=== PATIENT | male | born 1985 | race Caucasian/White ===

== ENCOUNTER → 2022-02-10 15:17 | Outpatient (BNVA) | payer BC, SELFPAY | PROVIDERS: PCP Physician Assistant; Visit Provider Nurse Practitioner Family | DX: M47.812 Spondylosis without myelopathy or radiculopathy, cervical region (principal); M79.18 Myalgia, other site; M25.511 Pain in right shoulder; M25.551 Pain in right hip; M62.830 Muscle spasm of back | CPT/HCPCS: 20553; J3300 ==

== ENCOUNTER → 2022-03-10 14:01 | Outpatient (BNVA) | payer BC, SELFPAY | PROVIDERS: PCP Physician Assistant; Visit Provider Nurse Practitioner Family | DX: Z13.89 Encounter for screening for other disorder (principal) ==

== ENCOUNTER 2022-03-21 17:02 | Outpatient (REF) | payer BC, SELFPAY ==
--- NOTE | ~2022-03-21 | XR_ITS ---
EXAMINATION: XR HIP, RIGHT CLINICAL INFORMATION: Pain in right hip COMPARISON: None TECHNIQUE: AP view of the pelvis, AP and frog-leg lateral radiographs of the right hip.. FINDINGS: Bones and soft tissues are normal. No fracture. Alignment is anatomic. Hip joint space is maintained. XR/XR hip RT w PEL1V IMPRESSION: Normal right hip.
== END 2022-03-21 17:03 | disposition home or self-care (01) ==
LOC: HO.XRAY 17:02
PROVIDERS: PCP Physician Assistant; Visit Provider Nurse Practitioner Family
DX: M25.551 Pain in right hip (principal); M51.16 Intervertebral disc disorders with radiculopathy, lumbar region
CPT/HCPCS: 73502

== ENCOUNTER → 2022-03-29 15:37 | Outpatient (BNVA) | payer BC, SELFPAY | PROVIDERS: PCP Physician Assistant; Visit Provider Nurse Practitioner Family | DX: Z13.89 Encounter for screening for other disorder (principal) ==

== ENCOUNTER 2022-04-01 10:00 | Outpatient (RCR) | payer BC, SELFPAY ==
--- NOTE | 2022-04-04 08:40 | MHC.PT.OD ---
[facility] [place] [facility] [place] [employer] [facility] [address] Ariel Scruggs [address] [phone] F: [phone] F: [phone] F: [phone] F: [phone] Physical Therapy Daily Note Diagnosis: PT eval and treat; Unspecified thoracic, thoracolumbar and lumbosacral intervertebral disc disorder M51.16 signed by Scout Diaz PA-C date of script 12/21/21 Date of Surgery: Date of Evaluation: 12/27/21 Date of Treatment: 02/25/22 Treatments to Date: Cancellations to Date: No Shows to Date: Authorized Visits: 6 Insurance End Date: Precautions/ Contraindications:hx facet injection on R C/S no change in sx, hx PT for L sciatica sx which were radiating to knee Subjective: Pt was last seen in PT on 02/25/22, expressing doing very well no significant pain, denies questions with specific HEP, going to gym often several times weekly. Presents stating pain management wanted PT to trial massage or US. Pt not specific to where- therapist reviewed pain management note at time of patient session. see MD note below Pain Score and Location: 2 R LUMBAR UP R SIDE OF BODY Objective Flowsheet: Tests & Measures 10 [facility] [address] [place] [id number] Office Visit Report Signed Patient: Esvin Johnson#: [id number] : 1985Acct:[id number] Age/Sex: 36 / MADM/SER Date: 03/29/22 Loc: HO.PMCADM/SER Time:1537 Attending Provider: Dafne COLBY cc: Dafne Dunlap; Scout Diaz PA-C~ Intake Vital Signs 03/29/22 15:38 Height 6 ft 2 in Weight 200 lb BMI 25.7 Intake Visit Reasons: Follow Up Allergies No Known Allergies Allergy (Verified 03/10/22 14:03) HPI HPI Comments History of Present Illness Details Patient presents today via telehealth encounter for follow up to discuss right hip xray results. Right hip xray reviewed with patient and is normal as noted below. Patient continues to report muscle tenderness and aching pain along his right side, mostly in his right hip and right lower back. He reports his final PT session will be this Monday. Reports minimal improvements in his pain and increased pelvic stabilization with regular HEP and daily stretches. He states he has increased awareness with pelvic alingment with PT and HEP. Patient is interested to proceed to interventional treatments after he completed PT. He has been regularly using TENS unit and finds this helpful, especially for stiffness and spasms of his right lower back in the paraspinals and right hip regions. PRIOR: Patient presents via telehealth encounter today for follow up. He reports minimal pain relief with trigger point injections at previous visit for his right cervical muscle tightness and spasms. Patient also reports no relief with cyclobenzaprine which he only tried for 2 days and had to stop due to significant lethargy and dizziness. He continues with PT and HEP which has been only partially helpful for his axial pain and pelvic stabilization. Today he reports ongoing right hip pain unresponsive to conservative treatments. He received his TENS unit from [email or web address] recently and is awaiting informational conference call with them on how to use it. We reviewed his old records from [facility] for cervical and right shoulder imaging and past injection procedures. Imaging reports are noted below. Patient had right C4-5 C5-6 C6-7 facet injection with steroids on 07/20/2020 through [facility] with good results. Patient denies any fever, malaise, weight changes, abdominal or groin pain, numbness, tingling, upper or lower extremity weakness, bladder/bowel dysfunction or saddle anesthesia. PRIOR: Patient is a pleasant 36 years old male who presents today for his initial encounter with continued pain in his right hip, pelvis and lower back region. His pain escalates through the right side and upper shoulder and collar bone area. Currently in PT and had received prior treatments at [facility] in early 2019. His back pain started in late 2018 due to exercise injury with weight lifting and total body workout. Lumbar MRI on 11/23/18 showed mild lower lumbar levocurvature, large central extruded disc herniation at L5-S1 with disc degenerative change at this level and mild left S1 nerve root impingement. Very small lateral foraminal/extraforaminal disc protrusion at L4-5 without neural impingement and mild facet arthrosis at this level. Very small left paramedian disc protrusion at L1-2 and small left central disc protrusion at T11-12. He reports no axial pain today. Patient continues to go to the gym 3-5 days per week. His most concerns now are right hip to right shoulder pain with significant paraspinal muscle tenderness on the right. Pain is described as dull, sore, hurting, aching, heavy, tight, squeezing, and tearing. Patient denies any fever, malaise, weight loss, abdominal or groin pain, numbness, tingling, upper or lower extremity weakness, bladder/bowel dysfunction or saddle anesthesia. Patient is interested in continuing PT and HEP. He completed PT with pelvic stabilization and chiropractic manipulation [id number] with improvements. Denies taking any medications for pain. Current pain level 12/06. Patient also received cervical right sided facets cortisone injection in 2019 with no relief. He notices significant muscle tenderness and spasms in his right upper and middle trapezius areas and would like to get trigger point injections today. 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 He drinks 1 glass of bourbon 3-4 days per week and daily coffee. Denies smoking or illicit drug use. [facility] Surgical History History of repair of ACL Family History Father Hypertension Prostate cancer Mother No problems noted. Paternal Grandmother Diabetes Paternal Grandfather Diabetes Sister In good health Son In good health Other Mental health problem Substance abuse Social History Housing: House Alcohol intake: current Alcohol intake frequency: a few times a week Patient Tobacco Use Status: Never used Tobacco Second Hand Smoke Exposure: Yes service: No Current occupational status: employed Review of Systems Const All systems reviewed & are unremarkable except as noted in HPI and below Physical Exam Vital Signs: BMI result Body Mass Index 25.7 Const General: cooperative, alert and awake Orientation/consciousness: patient oriented x3 Resp Effort & Inspection: able to speak in complete sentences, no audible wheezes and no cough Neuro General: patient oriented x3 Cognition (Neuro): normal cognition Psych Mental Status: mental status grossly normal Speech and movement: Clear speech present Affect: normal affect Attitude: cooperative Thought process: Normal thought process present Thought content: Normal thought content present, suicidality, no hallucinations and No Depressive thoughts present Insight: Good insight present (Psych) Judgement: Good judgement present (Psych) Results Reviewed Results Reviewed: XR HIP, RIGHT 03/21/22 CLINICAL INFORMATION: Pain in right hip FINDINGS: Bones and soft tissues are normal. No fracture. Alignment is anatomic. Hip joint space is maintained. IMPRESSION: Normal right hip. Assessment & Plan Assessment & Plan (1) Muscle spasm of back: Code(s): M62.830 - Muscle spasm of back (2) Right hip pain: Code(s): M25.551 - Pain in right hip (3) Myofascial pain: Code(s): M79.18 - Myalgia, other site Plan I will add to current PT order request for therapeutic US and deep tissue massage for upcoming PT session this Monday. Patient will call our office back with his responses after PT for potential lumbar and right hip injections to alleviate his ongoing pain. All questions and concerns have been answered and patient agrees with the plan. Follow up as needed. I hereby testify that I spent 13 minutes in conversation with this patient as well as with planning care for this patient and organizing this note. Orders: Orders PT Evaluation and Treatment 3 Days M25.551 - Pain in right hip, M62.830 - Muscle spasm of back, M79.18 - Myalgia, other site Telehealth Telehealth Location of provider rendering services: practice address Location of patient: address on file Patient Identification confirmed using: Name, : Yes Telehealth method: voice only Patient verbally consented to treatment: Yes Patient verbally consented to billing insurance company: Yes Patient informed of any privacy concerns related to visit: Yes Minutes spent on Phone/Video with Pt.: 13 Coding Level of Care Code Tele Est Pt Level 3 (67123) Diagnoses Muscle spasm of back M62.830 Right hip pain M25.551 Myofascial pain M79.18 Documented By:Dafne Dunlap [facility]03/29/22 1538 Exercises Reassessment: AROM of the lumbar WFL no pain reported and good ROM with ability to reach midshin with flexion. Negative squish test, negative MET assessment, negative SLR, now negative prone knee bend and prone instability test which were once positive at start of care. Hip flexion 5/5 B, knee ext 5/5 B, hip abd 4+/5L hip abd 5/5 on R, prone hip ext 5-/5 B, Pt exhibits good symmetrical squat technique. Negative TTP at site of spine during exam. Negative quadrant testing for the spine. No specific area where pt was able to pinpoint as area of pain, tissue appears to demonstrate no restriction; pt doing very well; therapist did not find US warranted or clinically appropriate based on presentation during exam. Due to request found in [facility] notes from last office visit requesting STM, therapist elected trial of IASTM to R QL/lower paraspinal region in effort to assess response. No erythema response was noted with technique. Pt was noted to exhibit good skin rolling, good mm mobility, and no tenderness with treatment. Pt was educated in rationale for why US was not felt to be warranted at this stage of PT. After treatment session was completed- office staff informed therapist of a fax which was sent over from [facility] in afternoon of this date- this was received after treatment was completed today- requesting US and STM Bridge over phyisoball, HS curls with physioball, bridge>HS curls with physioball x2 set 10R, TRX reverse lunges reviewed, lateral stepping with ROW cable column. Review of prone ITY over pball with gtb around ankle, assessment ITY strength prone on mat good no pain B UE. Prone planks reviewed, SL plank technique reviewed. Addressed pt question/home program and goals of PT moving forward with transition to I HEP. See note above manual therapy Modalities Assessment: 04/01/22 Pt was last seen in PT 35 days ago, expressing with positive gains since last visit and progressive improvements since time of initial evaluation. He now exhibits negative prone instabillity testing (at eval was positive) and can demonstrate symmetrical squat technique with proper weight shift/mechanics without evidence of retropulsion. He has been educated in a very dynamic and high level exercise program with specific education re: transitional tasks integrated with gym classes. He did not express any pain or demonstrate any visible skin reaction or erythema response to trial of instrument assisted soft tissue mobilization (completed per request of pain management provider today)- although pt did not present with any report of pain today either.) There was no evidence of any significant tissue restriction or limitation upon reassessment. He verbalizes understanding of I HEP. Pt has met all STG/LTG for stabilization program. D/C to I HEP this time. 02/25/22 Has been advancing home program with good tolerance, now able to complete single leg bridges, reports overall no R UE sx today, relief with hip stretches for home. Discussed plan to continue to diversity strengthening and stabilization program with tasks issued today, educated to complete at home within painfree ranges. Reviewed plan to transition to I HEP likely next session- will try I HEP for next few weeks. Pt loses balance with attempt of warrior single leg poses R >L. Reviewed technique for higher level stabilization of core and pelvis, improving awareness observed. Pt to taper to once every other week due to I HEP and positive response. Of note- therapy office received a fax from pain management following completion of pt's treatment. PT Plan: Continue I HEP. D/C today from PT. Short Term Goals: 1. Pt will demonstrate implement of R hip flexor stretching program. met 2. Pt will demonstrate recruitment of core stabilizers with ADLS/IADLS. met 3. Pt will demonstrate negative prone instability testing met. 4. Pt will demonstrate good evidence hip hinge with functional squat with good core activation met. 5. Lumbar AROM side-bending improvement by 25%. met 6. Hip abd L strength 4+/5. (IR 4-/5). met Care Home Goals: 1. Pt will demonstrate I HEP. (met). 2. Lumbar hip abd strength 5/5 B. (met) 3. Hip abd strength 5/5 B. L 5-/5, R 5/5. 4. Negative prone instability testing. met 5. Resume gym with positive carryover of independent home program. met Electronically signed by: Jeniffer Toney, PT, DPT
== END 2022-06-16 09:55 | disposition home or self-care (01) ==
LOC: HO.PTWFD 10:00
PROVIDERS: PCP Physician Assistant; Visit Provider Physician Assistant
DX: M51.9 Unspecified thoracic, thoracolumbar and lumbosacral intervertebral disc disorder (principal); M51.16 Intervertebral disc disorders with radiculopathy, lumbar region
CPT/HCPCS: 97110; 97140; 97161

== ENCOUNTER 2024-01-29 11:00 | Outpatient (RCR) | payer BC, SELFPAY | END 2024-05-20 07:23 | disposition home or self-care (01) | LOC: HO.PTWFD 11:00 | PROVIDERS: PCP Physician Assistant; Visit Provider Physician Assistant | DX: M67.912 Unspecified disorder of synovium and tendon, left shoulder (principal) | CPT/HCPCS: 97110; 97140; 97161; 97535 ==

== ENCOUNTER 2024-04-23 11:33 | Outpatient (REF) | payer BC, SELFPAY ==
[2024-04-23 14:59] LABS: Hemoglobin 14.7 g/dl (14.0-18.0); Mean Corpuscular HGB Conc 34.2 g/dl (31.0-36.0); Mean Corpuscular Hemoglobin 32.5 pg (27.0-33.0); Mean Corpuscular Volume 95.1 fL (80.0-98.0); Mean Platelet Volume 10.9 fL (9.4-12.4); Platelet Count 246 X10*3/uL (160-400); Red Blood Count 4.52 X10*6/uL (4.60-5.80); Red Cell Distribution Width 12.4 % (11.0-16.0); White Blood Count 5.1 X10*3/uL (4.8-10.8)
[2024-04-23 15:48] LABS: Alanine Aminotransferase 19 U/L (0-40); Albumin Level 4.6 g/dL (3.5-5.0); Alkaline Phosphatase 70 U/L (39-117); Anion Gap 11 (12-20); Aspartate Amino Transferase 23 U/L (5-37); Bilirubin Total 0.7 mg/dL (0.0-1.0); Blood Urea Nitrogen 20 mg/dL (9-16); Calcium 9.6 mg/dL (8.4-10.2); Carbon Dioxide 29 mmol/L (22-29); Chloride 104 mmol/L (96-108); Estimated Glomerular Filt Rate > 60; Glucose Fasting 93 mg/dL (60-99); Potassium 4.2 mmol/L (3.3-5.1); Sodium 140 mmol/L (135-145); Total Protein 7.4 g/dL (6.5-8.0)
== END 2024-04-23 11:34 | disposition home or self-care (01) ==
LOC: HO.WFDLDS 11:33
PROVIDERS: Visit Provider Physician Assistant
DX: Z13.1 Encounter for screening for diabetes mellitus (principal)
CPT/HCPCS: 36415; 80053; 85027

== ENCOUNTER 2024-04-30 15:58 | Outpatient (AMB) | payer BC, SELFPAY ==
[2024-04-30 16:00] VITALS: BP 122/78; PULSE 68; O2SAT 99; BMI 29.4
--- NOTE | 2024-04-30 16:00 | A.OFFPC_ITS ---
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 Patient has a medical history significant lumbar disc disease. Concern-- -> no concerns today Lumbar disc disease: Xray lumbar spine --> Moderate degenerative disc disease L5-S1. No acute osseous abnormality.? Patient is followed by spine in sports and has done extensive months physical therapy and feels better, though not 100%.? He continues to go the gym 5 days a week. Otherwise not use any medications for his back pain. ? .. Vaccine:? Up-to-date with COVID vaccine, flu vaccine Up-to-date with tetanus, Laboratory Tests 04/23/24 11:36 RBC 4.52 L Hgb 14.7 Creatinine 1.06 AST 23 ALT 19 PFSH Medical History Cervical spondylosis Surgical History History of repair of ACL Family History Father Hypertension Prostate cancer Mother No problems noted. Paternal Grandmother Diabetes Paternal Grandfather Diabetes Sister In good health Son In good health Other Mental health problem Substance abuse Social History (Updated 04/30/24 @ 16:11 by Scout Diaz PA-C) Housing: House Alcohol intake: current Alcohol intake frequency: a few times a month Patient Tobacco Use Status: Never used Tobacco e-Cigarette/Vaping Use: Never Used Second Hand Smoke Exposure: Yes service: No Current occupational status: employed Current occupation: party plan sales unit advisor Cognitive needs: No Hearing needs: No Vision needs: Yes (glasses) Questionnaire PHQ-9 Over the last 2 weeks, how often have you been bothered by any of the following problems? 1. Little interest or pleasure in doing things: not at all 2. Feeling down, depressed, or hopeless: not at all 3. Trouble falling or staying asleep, or sleeping too much: not at all 4. Feeling tired or having little energy: not at all 5. Poor appetite or overeating: not at all 6. Feeling bad about yourself - or that you are a failure or have let yourself or your family down: not at all 7. Trouble concentrating on things, such as reading the newspaper or watching television: not at all 8. Moving or speaking so slowly that other people could have noticed. Or the opposite - being so fidgety or restless that you have been moving around a lot more than usual: not at all 9. Thoughts that you would be better off or of hurting yourself in some way: not at all Total score: 0 Depression Screening Interpretation: Negative Depression Screening Done: Yes 29150 - PHQ-9 Billing: Yes Source: Developed by Drs. Tee Mondragon, Kimberly Muhammad, Tomas Dempsey and colleagues, with an educational светлана from [employer]. Thrive Questionnaire Date Thrive assessed: 04/30/24 I am a: Patient What is your living situation today?: I have a steady place to live Within the past 12 months, did the food you bought not last and you didn't have the money to get more?: Never true Within the past 12 months, did you worry whether your food would run out before you got money to buy more?: Never true Do you have trouble paying for medicines?: No Do you have trouble getting transportation to medical appointments?: No Do you have trouble paying your heating and electricity bill?: No Do you have trouble taking care of your child, family member or friend?: No Do you have trouble with day-to-day activities such as bathing, preparing meals, shopping, managing finances, etc.?: No Are you currently unemployed and looking for a job?: No Are you interested in more education?: No Currently or been in a relationship where the following occur: no concerns reported THRIVE Score: 0 AUDIT C Alcohol Use Questionnaire (AUDIT-C) 1. How often do you have a drink containing alcohol?: 2-3 times a week 2. How many drinks containing alcohol do you have on a typical day when you are drinking?: 1 or 2 Total Score: 3 BLANCA-7 AMB Questionnaire BLANCA-7 Date BLANCA - 7 assessed: 04/30/24 Feeling nervous, anxious, or on edge: 0 = Not at all Not being able to stop or control worryin = Not at all Worrying too much about different things: 0 = Not at all Trouble relaxin = Not at all Being so restless that it is hard to sit still: 0 = Not at all Becoming easily annoyed or irritable: 0 = Not at all Feeling afraid as if something awful might happen: 0 = Not at all Total BLANCA-7 score (0-4 normal; 5-9 mild; 10-14 moderate; 15-21 severe): 0 Source: Developed by Drs. Tee Mondragon, Kimberly Muhammad, Tomas Dempsey and colleagues, with an educational светлана from [employer]. BLANCA-7 Assessment Billing BLANCA-7 Assessment Tool: BLANCA-7 Assessment 98159 Review of Systems Const Denies body aches, Denies chills, Denies excessive sweating, Denies fatigue, Denies fever(s) and Denies headache(s) Eyes Denies blurry vision ENT Denies dysphagia, Denies vertigo, Denies dizziness, Denies headache(s), Denies hearing loss and Denies tinnitus Card Denies chest pain, Denies chest pain with activity, Denies syncope, Denies irregular heart rhythm and Denies dyspnea Resp Denies chest congestion, Denies cough, Denies hemoptysis, Denies dyspnea and Denies wheezing GI Denies abdominal pain, Denies melena, Denies hematochezia, Denies coffee ground emesis, Denies dysphagia, Denies diarrhea, Denies nausea and Denies vomiting Denies difficulty urinating, Denies dysuria, Denies urinary frequency, Denies urinary hesitancy and Denies urinary urgency Musc Denies arthralgias, Denies limited range of motion, Denies muscle cramps and Denies muscle weakness Skin/Breast Denies rash and Denies skin ulcer Neuro Denies Abnormal speech present, Denies confusion, Denies vertigo, Denies dizziness, Denies syncope, Denies headache(s), Denies memory loss and Denies seizure-like activity Psych Denies anxiety, Denies confusion, Denies depression, Denies memory loss, Denies panic attacks and Denies paranoia Endo Denies excessive sweating, Denies fatigue, Denies flushing, Denies polydipsia and Denies polyuria Aller/Immun Denies wheezing Physical exam (Primary Care) Vital Signs: Last Vital Signs Pulse 68 04/30/24 16:00 BP 122/78 04/30/24 16:00 Pulse Ox 99 04/30/24 16:00 Oxygen Delivery Method Room Air 04/30/24 16:00 BMI result Body Mass Index 29.4 Tobacco/Smoking Status: Tobacco use Status Tobacco use date assessed 04/30/24 04/30/24 16:03 Patient Tobacco Use Status Never used Tobacco 04/30/24 16:11 Tobacco use type 04/26/23 14:53 e-Cigarette/Vaping Use Never Used 04/30/24 16:11 PHQ-9: PHQ-9 Score PHQ-9: Total score 0 04/30/24 16:08 Depression Screening Interpretation: Negative Thrive Assessment: Date of Thrive Assessment Date Thrive assessed 04/30/24 04/30/24 16:03 Currently or been in a relationship where the following occur: no concerns reported Const General: cooperative, comfortable, no acute distress, alert and awake; No confusion Orientation/consciousness: oriented to person, oriented to place, patient oriented x3 and No confusion HENMT Head: Yes normocephalic Ears: external ears normal and TM's normal bilaterally Face and sinus: No sinus tenderness Mouth: Normal oral and palatal mucosa present and tongue normal Teeth and gingiva: dentition normal and gingiva normal Throat: Yes posterior oropharynx normal, Yes tonsils normal and Yes uvula midline Eyes Conjunctivae: conjunctivae normal Sclerae: sclerae normal Pupils: Equal, round and reactive pupils present EOM: EOMs intact bilaterally Direct Ophthalmoscopy: No no photophobia Neck Neck: Yes no lymphadenopathy, No tender and Yes no JVD Thyroid: Thyroid normal Carotids: no bruits Chest Chest palpation & inspection: no tenderness Resp Effort & Inspection: normal respiratory effort, no audible wheezes, not labored and no stridor Auscultation: no crackles, no rales, no rhonchi and no wheezes Cardio Jugular venous distension: no JVD Rate: regular rate, not bradycardic and not tachycardic Rhythm: regular rhythm Bruits: no carotid bruits Peripheral pulses: Peripheral pulses 2+ throughout GI Inspection: Yes normal to inspection, No abdominal wall ecchymosis and No visible herniation Palpation (GI): Soft to palpation, nontender, no guarding, not rigid and No he patosplenomegaly present Auscultation: normoactive bowel sounds General: Yes no CVA tenderness Back/Spine/Pelvis Back: no CVA tenderness and No back tenderness Cervical Spine: cervical ROM normal Thoracic/Lumbar Spine: thoracic and lumbar spine normal to inspection, straight leg raise negative bilaterally, No thoraco-lumbar ROM limited and No lumbar spinal tenderness Skin Lesions: no lesions Rashes: no rashes Wounds: no wounds Neuro General: oriented to person, oriented to place, patient oriented x3, CN's II-XI intact bilaterally and No confusion Cranial nerves: Yes Equal, round and reactive pupils present and Yes Normal accommodation reflex present Cognition (Neuro): normal cognition Speech: No Abnormal speech present Gait exam (Neuro): Normal gait present Motor exam (neuro): 5/5 motor strength present throughout Extrem Right upper extremity: full ROM; no cyanosis Left upper extremity: full ROM; no cyanosis Right lower extremity: no edema Left lower extremity: no edema Psych Appearance: grossly normal Mental Status: mental status grossly normal Affect: normal affect Attitude: cooperative Thought process: Normal thought process present Assessment and Plan Assessment & Plan (1) Annual physical exam: Code(s): Z00.00 - Encounter for general adult medical examination without abnormal findings (2) Screening for diabetes mellitus (DM): Code(s): Z13.1 - Encounter for screening for diabetes mellitus (3) Lumbar disc disease with radiculopathy: Code(s): M51.16 - Intervertebral disc disorders with radiculopathy, lumbar region Plan: Patient does have lumbar this disease to which he has been doing his own home physical therapy which has been working well to maintain his pain. He does go to the gym 5 days a week.. Orders: Orders Comprehensive [place]. Panel Fast 11 Months Z13. - Encounter for screening for diabetes mellitus Complete Blood Count no Diff 11 Months Z13.1 - Encounter for screening for diabetes mellitus Coding Level of Care Code Est Pt Prev Care 18-39y(43856) Diagnoses Annual physical exam Z00.00 Screening for diabetes mellitus (DM) Z13.1 Lumbar disc disease with radiculopathy M51.16 Additional Codes BLANCA-7 Assessment Billing - BLANCA-7 Assessment Tool: BLANCA-7 Assessment 30243 ([id number])
== END 2024-04-30 16:20 | disposition home or self-care (01) ==
PROVIDERS: Visit Provider Physician Assistant
DX: Z00.00 Encounter for general adult medical examination without abnormal findings (principal); Z13.1 Encounter for screening for diabetes mellitus; M51.16 Intervertebral disc disorders with radiculopathy, lumbar region
CPT/HCPCS: 99395

== ENCOUNTER 2025-05-01 15:57 | Outpatient (AMB) | payer BC, SELFPAY ==
--- NOTE | 2025-05-01 16:08 | A.OFFPC_ITS ---
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 Patient has a medical history significant lumbar disc disease. Concern-- -> no concerns today Lumbar disc disease: Xray lumbar spine --> Moderate degenerative disc disease L5-S1. No acute osseous abnormality.? Patient is followed by spine in sports and has done extensive months physical therapy and feels better, though not 100%.? He continues to go the gym 5 -6 days a week. Otherwise not use any medications for his back pain. ? .. Vaccine:? Up-to-date with COVID vaccine, Up-to-date with tetanus PFSH Medical History Cervical spondylosis Surgical History History of repair of ACL Family History Father Hypertension Prostate cancer Mother No problems noted. Paternal Grandmother Diabetes Paternal Grandfather Diabetes Sister In good health Son In good health Other Mental health problem Substance abuse Social History Housing: House Alcohol intake: current Alcohol intake frequency: a few times a month Patient Tobacco Use Status: Never used Tobacco e-Cigarette/Vaping Use: Never Used Second Hand Smoke Exposure: Yes service: No Current occupational status: employed Current occupation: account advisor Cognitive needs: No Hearing needs: No Vision needs: Yes (glasses) Questionnaire PHQ-9 Over the last 2 weeks, how often have you been bothered by any of the following problems? 1. Little interest or pleasure in doing things: not at all 2. Feeling down, depressed, or hopeless: not at all 3. Trouble falling or staying asleep, or sleeping too much: not at all 4. Feeling tired or having little energy: not at all 5. Poor appetite or overeating: not at all 6. Feeling bad about yourself - or that you are a failure or have let yourself or your family down: not at all 7. Trouble concentrating on things, such as reading the newspaper or watching television: not at all 8. Moving or speaking so slowly that other people could have noticed. Or the opposite - being so fidgety or restless that you have been moving around a lot more than usual: not at all 9. Thoughts that you would be better off or of hurting yourself in some way: not at all Total score: 0 Depression Screening Interpretation: Negative Depression Screening Done: Yes 41358 - PHQ-9 Billing: Yes Source: Developed by Drs. Tee Mondragon, Kimberly Muhammad, Tomas Dempsey and colleagues, with an educational светлана from [employer] Thrive Questionnaire Date Thrive assessed: 05/01/25 I am a: Patient What is your living situation today?: I have a steady place to live Within the past 12 months, did the food you bought not last and you didn't have the money to get more?: Never true Within the past 12 months, did you worry whether your food would run out before you got money to buy more?: Never true Do you have trouble paying for medicines?: No Do you have trouble getting transportation to medical appointments?: No Do you have trouble paying your heating and electricity bill?: No Do you have trouble taking care of your child, family member or friend?: No Do you have trouble with day-to-day activities such as bathing, preparing meals, shopping, managing finances, etc.?: No Are you currently unemployed and looking for a job?: No Are you interested in more education?: No Please select the resources that you would like help with: None Currently or been in a relationship where the following occur: No concerns reported THRIVE Score: 0 AUDIT C Alcohol Use Questionnaire (AUDIT-C) 1. How often do you have a drink containing alcohol?: 2-3 times a week 2. How many drinks containing alcohol do you have on a typical day when you are drinking?: 1 or 2 3. How often do you have six or more drinks on one occasion?: Less than monthly Total Score: 4 BLANCA-7 AMB Questionnaire BLANCA-7 Date BLANCA - 7 assessed: 05/01/25 Feeling nervous, anxious, or on edge: 1 = Several days Not being able to stop or control worryin = Not at all Worrying too much about different things: 1 = Several days Trouble relaxin = Not at all Being so restless that it is hard to sit still: 0 = Not at all Becoming easily annoyed or irritable: 1 = Several days Feeling afraid as if something awful might happen: 0 = Not at all Total BLANCA-7 score (0-4 normal; 5-9 mild; 10-14 moderate; 15-21 severe): 3 Source: Developed by Drs. Tee Mondragon, Kimberly Muhammad, Tomas Dempsey and colleagues, with an educational светлана from [employer] BLANCA-7 Assessment Billing BLANCA-7 Assessment Tool: BLANCA-7 Assessment 44447 Review of Systems Const Denies body aches, Denies chills, Denies excessive sweating, Denies fatigue, Denies fever(s) and Denies headache(s) Eyes Denies blurry vision ENT Denies dysphagia, Denies vertigo, Denies dizziness, Denies headache(s), Denies hearing loss and Denies tinnitus Card Denies chest pain, Denies chest pain with activity, Denies syncope, Denies irregular heart rhythm and Denies dyspnea Resp Denies chest congestion, Denies cough, Denies hemoptysis, Denies dyspnea and Denies wheezing GI Denies abdominal pain, Denies melena, Denies hematochezia, Denies coffee ground emesis, Denies dysphagia, Denies diarrhea, Denies nausea and Denies vomiting Denies difficulty urinating, Denies dysuria, Denies urinary frequency, Denies urinary hesitancy and Denies urinary urgency Musc Denies arthralgias, Denies limited range of motion, Denies muscle cramps and Denies muscle weakness Skin/Breast Denies rash and Denies skin ulcer Neuro Denies Abnormal speech present, Denies confusion, Denies vertigo, Denies dizziness, Denies syncope, Denies headache(s), Denies memory loss and Denies seizure-like activity Psych Denies anxiety, Denies confusion, Denies depression, Denies memory loss, Denies panic attacks and Denies paranoia Endo Denies excessive sweating, Denies fatigue, Denies flushing, Denies polydipsia and Denies polyuria Aller/Immun Denies wheezing Physical exam (Primary Care) Vital Signs: Last Vital Signs Pulse 58 05/01/25 16:09 BP 130/88 05/01/25 16:09 Pulse Ox 97 05/01/25 16:09 Oxygen Delivery Method Room Air 05/01/25 16:09 BMI result Body Mass Index 33.2 Tobacco/Smoking Status: Tobacco use Status Tobacco use date assessed 05/01/25 05/01/25 16:15 Patient Tobacco Use Status Never used Tobacco 05/01/25 16:15 Tobacco use type 04/26/23 14:53 e-Cigarette/Vaping Use Never Used 05/01/25 16:15 PHQ-9: PHQ-9 Score PHQ-9: Total score 0 05/01/25 16:15 Depression Screening Interpretation: Negative Thrive Assessment: Date of Thrive Assessment Date Thrive assessed 05/01/25 05/01/25 16:15 Currently or been in a relationship where the following occur: No concerns reported Const General: cooperative, comfortable, no acute distress, alert and awake; No confusion Orientation/consciousness: oriented to person, oriented to place, patient oriented x3 and No confusion HENMT Head: Yes normocephalic Ears: external ears normal and TM's normal bilaterally Face and sinus: No sinus tenderness Mouth: Normal oral and palatal mucosa present and tongue normal Teeth and gingiva: dentition normal and gingiva normal Throat: Yes posterior oropharynx normal, Yes tonsils normal and Yes uvula midline Eyes Conjunctivae: conjunctivae normal Sclerae: sclerae normal Pupils: Equal, round and reactive pupils present EOM: EOMs intact bilaterally Direct Ophthalmoscopy: No no photophobia Neck Neck: Yes no lymphadenopathy, No tender and Yes no JVD Thyroid: Thyroid normal Carotids: no bruits Chest Chest palpation & inspection: no tenderness Resp Effort & Inspection: normal respiratory effort, no audible wheezes, not labored and no stridor Auscultation: no crackles, no rales, no rhonchi and no wheezes Cardio Jugular venous distension: no JVD Rate: regular rate, not bradycardic and not tachycardic Rhythm: regular rhythm Bruits: no carotid bruits Peripheral pulses: Peripheral pulses 2+ throughout GI Inspection: Yes normal to inspection, No abdominal wall ecchymosis and No visible herniation Palpation (GI): Soft to palpation, nontender, no guarding, not rigid and No hepatosplenomegaly present Auscultation: normoactive bowel sounds General: Yes no CVA tenderness Back/Spine/Pelvis Back: no CVA tenderness and No back tenderness Cervical Spine: cervical ROM normal Thoracic/Lumbar Spine: thoracic and lumbar spine normal to inspection, straight leg raise negative bilaterally, No thoraco-lumbar ROM limited and No lumbar spinal tenderness Skin Lesions: no lesions Rashes: no rashes Wounds: no wounds Neuro General: oriented to person, oriented to place, patient oriented x3, CN's II-XI intact bilaterally and No confusion Cranial nerves: Yes Equal, round and reactive pupils present and Yes Normal accommodation reflex present Cognition (Neuro): normal cognition Speech: No Abnormal speech present Gait exam (Neuro): Normal gait present Motor exam (neuro): 5/5 motor strength present throughout Extrem Right upper extremity: full ROM; no cyanosis Left upper extremity: full ROM; no cyanosis Right lower extremity: no edema Left lower extremity: no edema Psych Appearance: grossly normal Mental Status: mental status grossly normal Affect: normal affect Attitude: cooperative Thought process: Normal thought process present Coding Level of Care Code Est Pt Prev Care 18-39y(77692) Diagnoses Annual physical exam Z00.00 Class 1 obesity E66.811 Additional Codes PHQ-9 - 98567 - PHQ-9 Billing: Yes ([id number]) BLANCA-7 Assessment Billing - BLANCA-7 Assessment Tool: BLANCA-7 Assessment 07051 ([id number]) Assessment & Plan Assessment & Plan (1) Annual physical exam: Code(s): Z00.00 - Encounter for general adult medical examination without abnormal findings Category: Medical Plan: As per HPI (2) Class 1 obesity: Code(s): E66.811 - Obesity, class 1 Category: Medical Plan: Patient does understand his BMI is over 30. He has been working in the gym 6 days a week and reports having a lot of muscle mass. Will work on doing more cardio to reduce his weight a bit. Orders: Orders Complete Blood Count no Diff Today Z13.1 - Encounter for screening for diabetes mellitus Comprehensive [place]. Panel Fast Today Z13.1 - Encounter for screening for diabetes mellitus
[2025-05-01 16:09] VITALS: BP 130/88; PULSE 58; O2SAT 97; BMI 33.2
== END 2025-05-01 16:40 | disposition home or self-care (01) ==
LOC: HO.HMCH 15:58
PROVIDERS: PCP Physician Assistant; Visit Provider Physician Assistant
DX: Z00.00 Encounter for general adult medical examination without abnormal findings (principal); E66.811 Obesity, class 1; Z68.33 Body mass index [BMI] 33.0-33.9, adult

== ENCOUNTER → 2025-05-01 15:57 | Outpatient (BNVA) | payer BC, SELFPAY | PROVIDERS: PCP Physician Assistant; Visit Provider Physician Assistant | DX: Z00.00 Encounter for general adult medical examination without abnormal findings (principal); E66.811 Obesity, class 1; Z68.33 Body mass index [BMI] 33.0-33.9, adult | CPT/HCPCS: 96127 ==